=== PATIENT | female | born 1960 | race Caucasian/White ===

== ENCOUNTER 2018-07-01 15:43 | Emergency (ER) | payer BC, OTHER ==
[2018-07-01] MEDS ORDERED: ONDANSETRON 4 MG/2 ML VIAL ONE ×2 (16:33→19:51)
[2018-07-01] MEDS ORDERED: MORPHINE 4 MG/ML SYR ONE ×2 (16:33→19:52)
[2018-07-01 16:35] LABS: Absolute Monocytes 0.6 K/uL (0.1-1.3); Absolute Neutrophil 7.1 K/uL (1.8-8.0); Basophils % 0.7 % (0-1.3); Eosinophils % 1.9 % (0-4.4); Lymphocytes % 19.9 % (15.3-44.8); MCH 29.6 pg (27.0-35.0); MCV 86.5 fL (80-100); MPV 10.6 fL (7.6-11.3); Monocytes % 5.8 % (3.3-12.3); RBC Red Blood Cell Count 4.51 M/uL (3.86-4.86)
[2018-07-01 16:36] LABS: Protime INR 1.03
[2018-07-01 17:09] LABS: ALT/SGPT 64 U/L (12-78); AST/SGOT 51 U/L (15-37); Albumin 3.5 g/dL (3.4-5.0); Alkaline Phosphatase 110 U/L (45-117); BUN Blood Urea Nitrogen 15 mg/dL (7-18); Bicarbonate 29 mmol/L (21-32); Bilirubin Direct 0.2 mg/dL (0-0.2); Bilirubin Total 0.5 mg/dL (0.2-1.0); Glucose Level 101 mg/dL (74-106); Lipase 155 U/L (73-393); Magnesium 1.8 mg/dL (1.8-2.4); NT PRO-BNP 143 pg/mL (<125); Potassium 3.7 mmol/L (3.5-5.1); Sodium Level 142 mmol/L (136-145); Troponin (Emerg Dept Use Only) < 0.02 ng/mL (0.0-0.045)
--- NOTE | 2018-07-01 17:48 | RAD REPORT ---
EXAM DESCRIPTION: CT - Abdomen Pelvis W Contrast - 07/01/2018 5:25 pm CLINICAL HISTORY: Left-sided abdominal pain COMPARISON: None. TECHNIQUE: Biphasic, helical CT imaging of the abdomen and pelvis was performed following 100 ml non -ionic IV contrast. No oral contrast administered. All CT scans are performed using dose optimization technique as appropriate and may include automated exposure control or mA/KV adjustment according to patient size. FINDINGS: No suspicious findings in the lung bases. Liver shows fatty infiltration with no focal liver lesion identifiable. Spleen and pancreas show no s uspicious findings. Cholecystectomy clips are present with no biliary tree dilatation. Symmetric renal function is seen with no hydronephrosis or suspicious renal mass. No pyelonephritis o r acute renal parenchymal process. Parapelvic cysts are present. Mostly contracted urinary bladder sh ows no suspicious finding. Uterus is absent. No ovarian abnormality. Multiple phleboliths are present . No gastric dilatation or wall thickening. A small to moderate size hiatal hernia is present. No dilat ed small bowel loop or focal small bowel abnormality. Mild to moderate diverticulosis seen in the tor tuous sigmoid colon. No acute diverticulitis confirmed. Mild mucosal level inflammatory stranding can be present an occult on CT imaging. Diverticulosis continues in the descending colon. Colon mass is not confirmed. No free air, free fluid or inflammatory stranding. No hernia, mass or bulky lymphadenopathy. No ad renal abnormality. No suspicious bony findings. IMPRESSION: Left-sided colonic diverticulosis without mass or diverticulitis confirmed. Mild mucosal level inflammatory changes can be occult on CT imaging. No free air, obstruction or surgically emergent finding. Fatty infiltration of the liver.
--- NOTE | 2018-07-01 17:48 | RAD REPORT ---
EXAM DESCRIPTION: Nacho Single View07/01/2018 4:49 pm CLINICAL HISTORY: Chest pain COMPARISON: December 2016 FINDINGS: The lungs appear clear of acute infiltrate. The heart is normal size IMPRESSION: No acute abnormalities displayed
[2018-07-01 18:48] LABS: Urine Blood 1+ (NEG); Urine Glucose NEGATIVE (NEG); Urine Protein NEGATIVE (NEG); Urine Specific Gravity <1.005 (1.005-1.030)
--- NOTE | 2018-07-01 19:42 | ER ---
Nurse's Notes [facility] Name: Michelle Ibarra Age: 57 yrs Sex: Female : 1960 Arrival Date: 07/01/2018 Time: 15:46 Bed 18 Private MD: Roverto Christianson S Diagnosis: Unspecified abdominal pain Presentation: 07/01 15:52 Presenting complaint: Patient states: decreased urination, lower abd pain, diarrhea, sv right flank pain. Transition of care: patient was not received from another setting of care. Onset of symptoms was June 28, 2018. Care prior to arrival: None. 15:52 Method Of Arrival: Ambulatory sv 15:52 Acuity: ARNULFO 3 sv 16:00 Risk Assessment: Do you want to hurt yourself or someone else? Patient reports no rb1 desire to harm self or others. Initial Sepsis Screen: Does the patient meet any 2 criteria? No. Patient's initial sepsis screen is negative. Does the patient have a suspected source of infection? No. Patient's initial sepsis screen is negative. Historical: - Allergies: 15:53 No Known Allergies; sv - Home Meds: 16:00 Aspir-81 81 mg Oral TbEC 1 tab once daily [Active]; carvedilol 25 mg Oral tab 1 tab rb1 every 12 hours [Active]; Crestor 40 mg Oral tab 1 tab once daily [Active]; furosemide 40 mg Oral tab 1 tab once daily [Active]; lisinopril 10 mg Oral tab 1 tab once daily [Active]; Spironolactone 12.5 Oral 1 tab 2 times per day [Active]; - PMHx: 15:53 Hyperlipidemia; Hypertension; Myocardial infarction; CHF; sv - PSHx: 15:53 Knee surgery; Rotator cuff surgery; Cholecystectomy; sv - Immunization history:: Flu vaccine is not up to date. - Social history:: Smoking status: Patient/guardian denies using tobacco. - Ebola Screening: : No symptoms or risks identified at this time. Screenin:00 Abuse screen: Denies threats or abuse. Nutritional screening: No deficits noted. rb1 Tuberculosis screening: No symptoms or risk factors identified. Fall Risk None identified. Assessment: 16:00 General: Appears in no apparent distress. comfortable, Behavior is calm, cooperative, rb1 Denies fever. Pain: Complains of pain in suprapubic area, right lower quadrant and left lower quadrant Pain radiates to right lower back Pain currently is 10 out of 10 on a pain scale. Neuro: Level of Consciousness is awake, alert, obeys commands, Oriented to person, place, time, situation. Cardiovascular: Capillary refill < 3 seconds is brisk in bilateral fingers. Respiratory: Airway is patent Respiratory effort is even, unlabored, Respiratory pattern is regular, symmetrical. GI: Bowel sounds present X 4 quads. Abd is soft Reports cramping, diarrhea. : No signs and/or symptoms were reported regarding the genitourinary system. Derm: Skin is dry, Skin is normal, Skin temperature is warm. 17:00 Reassessment: Patient appears in no apparent distress at this time. Patient and/or rb1 family updated on plan of care and expected duration. Pain level reassessed. Patient is alert, oriented x 3, equal unlabored respirations, skin warm/dry/pink. 18:00 Reassessment: Patient appears in no apparent distress at this time. No changes from rb1 previously documented assessment. 18:10 Reassessment: Pt. ambulated to the restroom without difficulty. rb1 Vital Signs: 15:53 BP 142 / 74; Pulse 109; Resp 18; Temp 98.1; Pulse Ox 97% ; Weight 90.72 kg; Height 5 sv ft. 3 in. (160.02 cm); Pain 0/10; 16:30 BP 128 / 68; Pulse 90; Resp 20; Pulse Ox 97% on R/A; rb1 17:30 BP 139 / 67; Pulse 91; Resp 18; Pulse Ox 97% on R/A; rb1 18:15 BP 133 / 77; Pulse 85; Resp 17; Pulse Ox 95% on R/A; rb1 15:53 Body Mass Index 35.43 (90.72 kg, 160.02 cm) sv ED Course: 15:46 Patient arrived in ED. as 15:47 Roverto Christianson MD is Private Physician. as 15:52 Triage completed. sv 15:53 Arm band placed on. sv 15:54 Bipin Head [facility] 15:54 Sylvester Daley MD is Attending Physician. [facility] 16:00 Patient has correct armband on for positive identification. Placed in gown. Bed in low rb1 position. Call light in reach. Side rails up X 1. financial services director on. Pulse ox on. NIBP on. 16:11 Iris Blas, RN is Primary Nurse. rb1 16:15 Inserted saline lock: 22 gauge in right antecubital area, using aseptic technique. rb1 Blood collected. 16:29 Radiology exam delayed due to lab results not completed at this time. (BUN/Creatinine). tx 16:49 XRAY Chest (1 view) In Process Unspecified. EDMS 16:53 EKG done, by cogeneration technician. reviewed by Bipin AUGUST. 3 17:26 CT Abd/Pelvis - W/Contrast In Process Unspecified. EDMS 19:00 Report given to KAROLYN Teran. rb1 19:40 Roverto Christianson MD is Referral Physician. [facility] 19:57 No provider procedures requiring assistance completed. IV discontinued, intact, ak1 bleeding controlled, No redness/swelling at site. Pressure dressing applied. Administered Medications: 16:30 Drug: morphine 4 mg Route: IVP; Site: right antecubital; rb1 16:45 Follow up: Response: No adverse reaction; Pain is decreased rb1 16:30 Drug: Zofran 4 mg Route: IVP; Site: right antecubital; rb1 16:45 Follow up: Response: No adverse reaction rb1 19:52 Drug: morphine 4 mg Route: IVP; Site: right antecubital; ak1 19:58 Follow up: Response: No adverse reaction ak1 19:52 Drug: Zofran 4 mg Route: IVP; Site: right antecubital; ak1 19:58 Follow up: Response: No adverse reaction ak1 Outcome: 19:41 Discharge ordered by MD. [facility] 19:57 Discharged to home ambulatory, with family. ak1 19:57 Condition: good 19:57 Discharge instructions given to patient, Instructed on discharge instructions, follow up and referral plans. no drinking with medication, no driving heavy equipment, medication usage, Demonstrated understanding of instructions, follow-up care, medications, Prescriptions given X 1. 20:03 Patient left the ED. ak1 Signatures: Dispatcher [employer] EDMS Rosy Teague RN RN sv Mickail, Joel, PA PA jmm Martinez, Amelia as Krenek, Amber, RN RN ak1 Iris Blas, RN RN rb1 Terrence, Jeyson nj Olvera, Sirisha sm3
--- NOTE | 2018-07-01 19:42 | EDPHYS ---
Physician Documentation [facility] Name: Michelle Ibarra Age: 57 yrs Sex: Female : 1960 Arrival Date: 07/01/2018 Time: 15:46 Bed 18 Private MD: Roverto Christianson S ED Physician Sylvester Daley HPI: 07/01 16:11 This 57 yrs old Female presents to ER via Ambulatory with complaints of jmm Abdominal Pain, Back Pain, Diarrhea. 16:11 The patient presents with abdominal pain. Onset: The symptoms/episode began/occurred jmm gradually. The symptoms radiate to the right flank. Associated signs and symptoms: Pertinent positives: diarrhea. The symptoms are described as achy. This is a 57 year old female with a history of HLP, HTN, [place], CHF, that presents to the ED with right flank and right lower abdominal pain. Patient denies vomiting, admits to diarrhea. Patient is concerned she may have food poisoning. . Historical: - Allergies: 15:53 No Known Allergies; sv - Home Meds: 16:00 Aspir-81 81 mg Oral TbEC 1 tab once daily [Active]; carvedilol 25 mg Oral tab 1 tab rb1 every 12 hours [Active]; Crestor 40 mg Oral tab 1 tab once daily [Active]; furosemide 40 mg Oral tab 1 tab once daily [Active]; lisinopril 10 mg Oral tab 1 tab once daily [Active]; Spironolactone 12.5 Oral 1 tab 2 times per day [Active]; - PMHx: 15:53 Hyperlipidemia; Hypertension; Myocardial infarction; CHF; sv - PSHx: 15:53 Knee surgery; Rotator cuff surgery; Cholecystectomy; sv - Immunization history:: Flu vaccine is not up to date. - Social history:: Smoking status: Patient/guardian denies using tobacco. - Ebola Screening: : No symptoms or risks identified at this time. ROS: 16:11 Constitutional: Negative for fever, chills, and weight loss, Cardiovascular: Negative jmm for chest pain, palpitations, and edema, Respiratory: Negative for shortness of breath, cough, wheezing, and pleuritic chest pain. 16:11 Abdomen/GI: Positive for abdominal pain, diarrhea. jmm 16:11 All other systems are negative. Exam: 16:11 Head/Face: atraumatic. Chest/axilla: Normal chest wall appearance and motion. [facility] Cardiovascular: Regular rate and rhythm. No edema appreciated Respiratory: Normal respirations, no respiratory distress appreciated 16:11 Constitutional: The patient appears in no acute distress, alert, awake. 16:11 Abdomen/GI: Inspection: abdomen appears normal, Bowel sounds: normal, Palpation: soft, mild abdominal tenderness, in the right lower quadrant. 16:11 Back: ROM is normal. 16:11 Musculoskeletal/extremity: ROM: intact in all extremities. 16:11 Skin: Appearance: Color: normal in color. 16:11 Neuro: Orientation: is normal, Mentation: is normal, Memory: is normal, Gait: is steady. 16:11 Psych: Behavior/mood is pleasant, cooperative. Vital Signs: 15:53 BP 142 / 74; Pulse 109; Resp 18; Temp 98.1; Pulse Ox 97% ; Weight 90.72 kg; Height 5 sv ft. 3 in. (160.02 cm); Pain 0/10; 16:30 BP 128 / 68; Pulse 90; Resp 20; Pulse Ox 97% on R/A; rb1 17:30 BP 139 / 67; Pulse 91; Resp 18; Pulse Ox 97% on R/A; rb1 18:15 BP 133 / 77; Pulse 85; Resp 17; Pulse Ox 95% on R/A; rb1 15:53 Body Mass Index 35.43 (90.72 kg, 160.02 cm) sv MDM: 16:11 Patient medically screened. [facility] 19:32 Data reviewed: vital signs, nurses notes. [facility] 19:40 Counseling: I had a detailed discussion with the patient and/or guardian regarding: the [facility] historical points, exam findings, and any diagnostic results supporting the discharge/admit diagnosis, the need for outpatient follow up, to return to the emergency department if symptoms worsen or persist or if there are any questions or concerns that arise at home. 19:52 Data reviewed: lab test result(s), radiologic studies, CT scan. ED course: CT did not [facility] reveal signs of acute appendicitis. CBC normal. Patient given early appendicitis return precautions. I discussed with the patient the need for GI follow up and close follow up for abdominal reexamination. Patient was advised to otherwise return to the ED for reexamination. Patient understood and agrees with the plan of care. . 07/01 16:05 Order name: Basic Metabolic Panel; Complete Time: 17:10 [facility] 07/01 16:05 Order name: CBC with Diff; Complete Time: 16:56 [facility] 07/01 16:05 Order name: LFT's; Complete Time: 17:10 [facility] 07/01 16:05 Order name: Magnesium; Complete Time: 17:10 [facility] 07/01 16:05 Order name: NT PRO-BNP; Complete Time: 17:10 [facility] 07/01 16:05 Order name: PT-INR; Complete Time: 16:56 [facility] 07/01 16:05 Order name: Troponin (emerg Dept Use Only); Complete Time: 17:10 [facility] 07/01 16:05 Order name: XRAY Chest (1 view); Complete Time: 17:51 [facility] 07/01 16:05 Order name: Lipase; Complete Time: 17:10 [facility] 07/01 16:12 Order name: CT Abd/Pelvis - W/Contrast; Complete Time: 19:20 [facility] 07/01 18:22 Order name: Urine Dipstick--Ancillary (enter results); Complete Time: 18:52 em1 07/01 16:05 Order name: EKG; Complete Time: 16:06 [facility] 07/01 16:05 Order name: Cardiac monitoring; Complete Time: 16:48 [facility] 07/01 16:05 Order name: EKG - Nurse/Tech; Complete Time: 16:48 [facility] 07/01 16:05 Order name: IV Saline Lock; Complete Time: 16:35 [facility] 07/01 16:05 Order name: Labs collected and sent; Complete Time: 16:35 [facility] 07/01 16:05 Order name: O2 Per Protocol; Complete Time: 16:35 [facility] 07/01 16:05 Order name: O2 Sat Monitoring; Complete Time: 16:35 [facility] 07/01 18:22 Order name: Urine Dipstick-Ancillary (obtain specimen); Complete Time: 18:22 em1 Administered Medications: 16:30 Drug: morphine 4 mg Route: IVP; Site: right antecubital; rb1 16:45 Follow up: Response: No adverse reaction; Pain is decreased rb1 16:30 Drug: Zofran 4 mg Route: IVP; Site: right antecubital; rb1 16:45 Follow up: Response: No adverse reaction rb1 19:52 Drug: morphine 4 mg Route: IVP; Site: right antecubital; ak1 19:58 Follow up: Response: No adverse reaction ak1 19:52 Drug: Zofran 4 mg Route: IVP; Site: right antecubital; ak1 19:58 Follow up: Response: No adverse reaction ak1 Disposition: 07/01/18 19:41 Discharged to Home. Impression: Unspecified abdominal pain. - Condition is Stable. - Discharge Instructions: Abdominal Pain, Adult. - Prescriptions for Tylenol- Codeine #3 300-30 mg Oral Tablet - take 1 tablet by ORAL route every 6 hours As needed; 15 tablet. - Medication Reconciliation Form, Thank You Letter, Antibiotic Education, Prescription Opioid Use form. - Follow up: Roverto Christianson MD; When: Tomorrow; Reason: Recheck today's complaints, Continuance of care, Re-evaluation by your physician. - Notes: Please follow up with your primary care provider tomorrow for reevaluation. Please return to the ED if you develop increased pain, vomiting, fever, or any other concerning symptoms. Addendum: 07/03/2018 13:33 Co-signature as Attending Physician, Sylvester Daley MD I agree with the assessment and k dr plan of care. Signatures: Dispatcher [employer] EDMS Rosy Teague RN RN Sylvester Gil MD MD kdr Mickail, Joel, PA PA jmm Martinez, Eric em1 Parul Rogers RN RN ak1 Iris Blas RN RN rb1 Corrections: (The following items were deleted from the chart) 07/01 20:03 19:41 07/01/2018 19:41 Discharged to Home. Impression: Unspecified abdominal pain. ak1 Condition is Stable. Forms are Medication Reconciliation Form, Thank You Letter, Antibiotic Education, Prescription Opioid Use. Follow up: Roverto Christianson; When: Tomorrow; Reason: Recheck today's complaints, Continuance of care, Re-evaluation by your physician. jenifer
[2018-07-01 20:24] VITALS: TEMP 98.1
[2018-07-01 20:27] VITALS: BP 133/77; O2SAT 95
--- NOTE | 2018-07-02 08:15 | EKG ---
Test Date: 2018-07-01 Test Time: 16:39:03 Esol Teacher: JOEY MEASUREMENT RESULTS: Intervals: Rate: 102 UT: 156 QRSD: 100 QT: 352 QTc: 458 [place]: P: 40 UT: 156 QRS: -6 T: 126 INTERPRETIVE STATEMENTS: Sinus tachycardia Voltage criteria for left ventricular hypertrophy Anterolateral infarct, age undetermined Abnormal ECG Compared to ECG 01/10/2017 09:01:37 Myocardial infarct finding now present Sinus rhythm no longer present Atrial premature complex(es) no longer present Electronically Signed On 07-02-18 08:14:54 CDT by Chetan Upton
== END 2018-07-01 20:03 | disposition home or self-care (01) ==
LOC: ER 15:43
DX: R10.30 Lower abdominal pain, unspecified (principal); I10 Essential (primary) hypertension; E78.5 Hyperlipidemia, unspecified; I25.2 Old myocardial infarction; I50.9 Heart failure, unspecified; Z79.82 Long term (current) use of aspirin
CPT/HCPCS: 36415; 71045; 74177; 80048; 80076; 81003; 83690; 83735; 83880; 84484; 85025; 85610; 93005; 96374; 96375; 99285; J2405; Q9967

== ENCOUNTER 2019-03-04 15:14 | Observation (INO) | payer BC ==
[2019-03-04 16:02] LABS: Absolute Lymphocytes (CBC) 1.8 K/uL (0.7-4.9); Eosinophils % 2.8 % (0-4.4); Hematocrit 38.7 % (36.0-45.0); MPV 10.3 fL (7.6-11.3); Monocytes % 6.2 % (3.3-12.3); RBC Red Blood Cell Count 4.59 M/uL (3.86-4.86)
[2019-03-04 16:08] LABS: Protime INR 0.96
[2019-03-04 16:21] LABS: ALT/SGPT 39 U/L (12-78); AST/SGOT 29 U/L (15-37); Albumin 3.4 g/dL (3.4-5.0); Alkaline Phosphatase 107 U/L (45-117); BUN Blood Urea Nitrogen 17 mg/dL (7-18); Bicarbonate 26 mmol/L (21-32); Bilirubin Direct < 0.1 mg/dL (0-0.2); Bilirubin Total 0.3 mg/dL (0.2-1.0); Glucose Level 111 mg/dL (74-106); Magnesium 2.1 mg/dL (1.8-2.4); NT PRO-BNP 133 pg/mL (<125); Potassium 4.3 mmol/L (3.5-5.1); Protein, Total 7.3 g/dL (6.4-8.2); Sodium Level 142 mmol/L (136-145); Troponin (Emerg Dept Use Only) < 0.02 ng/mL (0.0-0.045)
--- NOTE | 2019-03-04 16:54 | RAD REPORT ---
EXAM DESCRIPTION: Nacho Single View03/04/2019 3:48 pm CLINICAL HISTORY: Chest pain COMPARISON: June 2018 FINDINGS: The lungs appear clear of acute infiltrate. The heart is normal size IMPRESSION: No acute abnormalities displayed
--- OUTSIDE RECORDS SUMMARY | 2019-03-04 17:08 | XMS REPORT ---
:1960 [facility] Address [address] [place] [address] Dr. Lindsey [address] [place] [id number] Care Team Providers Name Role Phone Unavailable Unavailable Unavailable Problems This patient has no known problems. Allergies, Adverse Reactions, Alerts This patient has no known allergies or adverse reactions. Medications This patient has no known medications.
--- NOTE | 2019-03-04 17:30 | EDPHYS ---
Physician Documentation [facility] Name: Michelle Ibarra Age: 58 yrs Sex: Female : 1960 Arrival Date: 03/04/2019 Time: 15:17 Bed 6 Private MD: ED Physician Sylvester Daley HPI: 03/04 15:31 This 58 yrs old Female presents to ER via EMS with complaints of Chest Pain > snw 28 y/o. 15:31 The patient or guardian reports chest pain that is located primarily in the substernal snw area. Onset: suddenly, this morning. The pain radiates to the right arm. Associated signs and symptoms: Pertinent positives: nausea. The chest pain is described as a heaviness, a pressure. Duration: The patient or guardian reports a single episode, that is now resolved. Severity of pain: At its worst the pain was moderate. EMS care prior to arrival includes: additional ASA, NTG. The patient has experienced similar episodes in the past, with the last episode occurring 2 year(s) ago. Historical: - Allergies: 15:24 No Known Drug Allergies; ph - Home Meds: 19:15 Aspir-81 81 mg Oral TbEC 1 tab once daily [Active]; carvedilol 25 mg Oral tab 1 tab ph every 12 hours [Active]; Crestor 40 mg Oral tab 1 tab once daily [Active]; furosemide 40 mg Oral tab 1 tab once daily [Active]; lisinopril 10 mg Oral tab 1 tab once daily [Active]; Spironolactone 12.5 Oral 1 tab 2 times per day [Active]; - PMHx: 15:24 CHF; Hyperlipidemia; Hypertension; Myocardial infarction; ph - PSHx: 15:24 Knee surgery; Rotator cuff surgery; Cholecystectomy; Hysterectomy-partial; ph - Immunization history:: Adult Immunizations unknown. - Social history:: Smoking status: Patient/guardian denies using tobacco. - Ebola Screening: : No symptoms or risks identified at this time. ROS: 15:32 Constitutional: Negative for fever, chills, and weight loss, Eyes: Negative for injury, snw pain, redness, and discharge, ENT: Negative for injury, pain, and discharge, Neck: Negative for injury, pain, and swelling, Respiratory: Negative for shortness of breath, cough, wheezing, and pleuritic chest pain, Abdomen/GI: Negative for abdominal pain, vomiting, diarrhea, and constipation, Positive nausea Back: Negative for injury and pain. 15:32 Skin: Negative for injury, rash, and discoloration, Neuro: Negative for headache, weakness, numbness, tingling, and seizure, Psych: Negative for depression, anxiety, suicide ideation, homicidal ideation, and hallucinations. 15:32 Cardiovascular: Positive for chest pain, of the chest. 15:32 MS/extremity: Positive for right arm sharp pain/heavy sensation. Exam: 15:34 Constitutional: This is a well developed, well nourished patient who is awake, alert, snw and in no acute distress. Head/Face: Normocephalic, atraumatic. Eyes: Pupils equal round and reactive to light, extra-ocular motions intact. Lids and lashes normal. Conjunctiva and sclera are non-icteric and not injected. Cornea within normal limits. Periorbital areas with no swelling, redness, or edema. ENT: Nares patent. No nasal discharge, no septal abnormalities noted. Tympanic membranes are normal and external auditory canals are clear. Oropharynx with no redness, swelling, or masses, exudates, or evidence of obstruction, uvula midline. Mucous membranes moist. Neck: Trachea midline, no thyromegaly or masses palpated, and no cervical lymphadenopathy. Supple, full range of motion without nuchal rigidity, or vertebral point tenderness. No Meningismus. Chest/axilla: Normal chest wall appearance and motion. Nontender with no deformity. No lesions are appreciated. Cardiovascular: Regular rate and rhythm with a normal S1 and S2. No gallops, murmurs, or rubs. Normal PMI, no JVD. No pulse deficits. Respiratory: Lungs have equal breath sounds bilaterally, clear to auscultation and percussion. No rales, rhonchi or wheezes noted. No increased work of breathing, no retractions or nasal flaring. Abdomen/GI: Soft, non-tender, with normal bowel sounds. No distension or tympany. No guarding or rebound. No evidence of tenderness throughout. Back: No spinal tenderness. No costovertebral tenderness. Full range of motion. Skin: Warm, dry with normal turgor. Normal color with no rashes, no lesions, and no evidence of cellulitis. MS/ Extremity: Pulses equal, no cyanosis. Neurovascular intact. Full, normal range of motion. Neuro: Awake and alert, GCS 15, oriented to person, place, time, and situation. Cranial nerves II-XII grossly intact. Motor strength 5/5 in all extremities. Sensory grossly intact. Cerebellar exam normal. Normal gait. 15:34 ECG was reviewed by the Attending Physician. Vital Signs: 15:22 BP 152 / 76; Pulse 68; Resp 18; Temp 98.1; Pulse Ox 96% on R/A; Weight 87.54 kg; Height ph 5 ft. 3 in. (160.02 cm); Pain 2/10; 16:15 BP 123 / 63; Pulse 74; Resp 18; Pulse Ox 99% on R/A; ph 17:30 BP 118 / 68; Pulse 68; Resp 18; Pulse Ox 98% on R/A; ph 18:30 BP 99 / 53; Pulse 65; Resp 18; Pulse Ox 99% on R/A; ph 19:48 BP 114 / 58; Pulse 62; Resp 16; Temp 98.2; Pulse Ox 99% on R/A; ak1 20:35 BP 121 / 60; Pulse 65; Resp 17; Temp 98.1; Pulse Ox 100% ; Pain 0/10; rr5 15:22 Body Mass Index 34.19 (87.54 kg, 160.02 cm) ph MDM: 15:30 Data reviewed: vital signs, nurses notes. Data interpreted: Pulse oximetry: on room air snw is 96 %. Interpretation: acceptable. 15:38 HEART Score: History: Moderately Suspicious (1), ECG: Non specific repolarization snw disturbance / LBTB / PM (1), Age: > 45 and < 65 years (1), Risk Factors: > or = 3 Risk factors for atherosclerotic disease (2), [Hypercholesterolemia] [Hypertension] [Obesity]. The patient was given aspirin in the Emergency Department. 15:40 Patient medically screened. snw 17:26 Counseling: I had a detailed discussion with the patient and/or guardian regarding: the snw historical points, exam findings, and any diagnostic results supporting the discharge/admit diagnosis, lab results, radiology results, the need for further work-up and treatment in the hospital. Physician consultation: Tommy El MD was called at 17:15, was contacted at 17:15, regarding admission, to the telemetry unit. 03/04 15:27 Order name: Basic Metabolic Panel ph 03/04 15:27 Order name: CBC with Diff; Complete Time: 16:11 ph 03/04 15:27 Order name: LFT's; Complete Time: 16:22 ph 03/04 15:27 Order name: Magnesium; Complete Time: 16:22 ph 03/04 15:27 Order name: NT PRO-BNP; Complete Time: 16:22 ph 03/04 15:27 Order name: PT-INR; Complete Time: 16:12 ph 03/04 15:27 Order name: Troponin (emerg Dept Use Only); Complete Time: 16:22 ph 03/04 15:27 Order name: Basic Metabolic Panel [facility] 03/04 15:27 Order name: CBC with Diff snw 03/04 15:27 Order name: LFT's snw 03/04 15:27 Order name: Magnesium [facility] 03/04 15:27 Order name: XRAY Chest (1 view); Complete Time: 17:04 ph 03/04 15:27 Order name: Cardiac monitoring; Complete Time: 16:39 ph 03/04 15:27 Order name: EKG - Nurse/Tech; Complete Time: 15:28 ph 03/04 15:27 Order name: IV Saline Lock; Complete Time: 15:28 ph 03/04 15:27 Order name: Labs collected and sent; Complete Time: 15:37 ph 03/04 15:27 Order name: O2 Per Protocol; Complete Time: 15:37 ph 03/04 15:27 Order name: O2 Sat Monitoring; Complete Time: 15:37 ph 03/04 15:27 Order name: EKG; Complete Time: 15:30 snw 03/04 15:28 Order name: Basic Metabolic Panel; Complete Time: 16:22 EDMS 03/04 18:00 Order name: Troponin I ED[facility] 03/04 18:01 Order name: CONS Physician Consult ED[facility] 03/04 18:01 Order name: Heart Healthy ED[facility] 03/04 15:27 Order name: Cardiac monitoring; Complete Time: 16:39 snw 03/04 15:27 Order name: EKG - Nurse/Tech; Complete Time: 16:39 snw 03/04 15:27 Order name: IV Saline Lock; Complete Time: 16:39 snw 03/04 15:27 Order name: Labs collected and sent; Complete Time: 19:11 snw 03/04 15:27 Order name: O2 Per Protocol; Complete Time: 19:11 snw 03/04 15:27 Order name: O2 Sat Monitoring; Complete Time: 19:11 snw EC:34 Rate is 69 beats/min. Rhythm is regular. QRS [place] is Normal. CA interval is prolonged. snw QRS interval is normal. QT interval is normal. No ST changes noted. Clinical impression: NSR w/ Non-specific ST/T Changes. Administered Medications: No medications were administered Disposition: 03/04/19 17:29 Hospitalization ordered by Tommy El for Observation. Preliminary diagnosis is Chest pain, unspecified. - Bed requested for Telemetry/MedSurg (observation). - Status is Observation. rr5 - Condition is Stable. - Problem is an acute exacerbation. - Symptoms are resolved. UTI on Admission? No Addendum: 03/07/2019 11:54 Co-signature as Attending Physician, Sylvester Daley MD I agree with the assessment and k dr plan of care. Signatures: Dispatcher [employer] [facility] Sylvester Daley MD MD [facility] Sherrill Capone, [employer] WORKER-C [employer] WORKER-CsnRosemarie Thomas ms, Patricia, RN RN Edgar Herman, KAROLYN RN rr5 Corrections: (The following items were deleted from the chart) 03/04 15:30 15:29 Basic Metabolic Panel ordered. [facility] EDWV 15:30 15:29 CBC with Automated Diff ordered. [facility] ED[facility] 15:30 15:30 PROBNP+C.LAB.BRZ ordered. [facility] ED[facility] 15:31 15:30 PROTIME (+INR)+COAG.LAB.BRZ ordered. ED[facility] ED[facility] 15:31 15:30 TROPONIN (EMERG DEPT USE ONLY)+C.LAB.BRZ ordered. [facility] ED[facility] 15:33 15:30 Chest Single View+RAD.RAD.BRZ ordered. [facility] ED[facility] 18:10 17:29 Hospitalization Ordered by Tommy El MD for Observation. Preliminary diagnosis ms is Chest pain, unspecified. Bed requested for Telemetry/MedSurg (observation). Status is Observation. Condition is Stable. Problem is an acute exacerbation. Symptoms are resolved. UTI on Admission? No. snw 20:39 18:10 03/04/2019 17:29 Hospitalization Ordered by Tommy El MD for Observation. rr5 Preliminary diagnosis is Chest pain, unspecified. Bed requested for Telemetry/MedSurg (observation). Status is Observation. Condition is Stable. Problem is an acute exacerbation. Symptoms are resolved. UTI on Admission? No. ms
--- NOTE | 2019-03-04 17:30 | ER ---
Nurse's Notes [facility] Name: Michelle Ibarra Age: 58 yrs Sex: Female : 1960 Arrival Date: 03/04/2019 Time: 15:17 Bed 6 Private MD: Diagnosis: Chest pain, unspecified Presentation: 03/04 15:18 Presenting complaint: Patient states: L sided chest pressure that began today, states, ph " I had just gotten home w/ my granddaughter and I started having a lot of pressure in my chest and pain in my R arm." Pt also reports SOB and nausea, self-administered 81 mg ASA, EMS administered 3 additional ASA and nitro x 1, pt reports hx of WI x 3. Transition of care: patient was not received from another setting of care. Onset of symptoms was March 04, 2019. Risk Assessment: Do you want to hurt yourself or someone else? Patient reports no desire to harm self or others. Initial Sepsis Screen: Does the patient meet any 2 criteria? Yes Does the patient have a suspected source of infection? No. Patient's initial sepsis screen is negative. Care prior to arrival: Medication(s) given: ASA, 81 mg, x 4, Nitroglycerin, 0.4 mg SL x 1, IV initiated. 20 GA, in the left in the right antecubital area. 15:18 Method Of Arrival: EMS: [facility] 15:18 Acuity: ARNULFO 3 ph Historical: - Allergies: 15:24 No Known Drug Allergies; ph - Home Meds: 19:15 Aspir-81 81 mg Oral TbEC 1 tab once daily [Active]; carvedilol 25 mg Oral tab 1 tab ph every 12 hours [Active]; Crestor 40 mg Oral tab 1 tab once daily [Active]; furosemide 40 mg Oral tab 1 tab once daily [Active]; lisinopril 10 mg Oral tab 1 tab once daily [Active]; Spironolactone 12.5 Oral 1 tab 2 times per day [Active]; - PMHx: 15:24 CHF; Hyperlipidemia; Hypertension; Myocardial infarction; ph - PSHx: 15:24 Knee surgery; Rotator cuff surgery; Cholecystectomy; Hysterectomy-partial; ph - Immunization history:: Adult Immunizations unknown. - Social history:: Smoking status: Patient/guardian denies using tobacco. - Ebola Screening: : No symptoms or risks identified at this time. Screenin:24 Abuse screen: Denies threats or abuse. Denies injuries from another. Nutritional ph screening: No deficits noted. Tuberculosis screening: No symptoms or risk factors identified. Fall Risk None identified. Assessment: 15:30 General: Appears in no apparent distress. comfortable, well groomed, Behavior is calm, ph cooperative, appropriate for age, Denies fever, feeling ill. Pain: Complains of pain in anterior aspect of left upper chest Pain radiates to right arm Pain currently is 2 out of 10 on a pain scale. at worst was 10 out of 10 on a pain scale. Quality of pain is described as pressure, Pain began suddenly. Neuro: Level of Consciousness is awake, alert, obeys commands, Oriented to person, place, time, situation. Cardiovascular: Reports chest pain, nausea, shortness of breath, Capillary refill < 3 seconds in bilateral fingers Patient's skin is warm and dry. Chest pain quality is pressure, is located in left anterior chest wall radiates to right arm(s) began suddenly. Respiratory: Airway is patent Respiratory effort is even, unlabored, Respiratory pattern is regular, symmetrical. GI: Patient currently denies abdominal pain, diarrhea, vomiting. Derm: Skin is intact, is healthy with good turgor, Skin is pink, warm \\T\\ dry. Musculoskeletal: Circulation, motion, and sensation intact. Range of motion: intact in all extremities. 16:42 Reassessment: Patient appears in no apparent distress at this time. Patient and/or ph family updated on plan of care and expected duration. Pain level reassessed. Patient is alert, oriented x 3, equal unlabored respirations, skin warm/dry/pink. tresting quietly rates pain 4/10 at this time, states, " It comes and goes," currently denies nausea or SOB, VSS, awaiting lab results, family at bedside. 17:40 Reassessment: Patient appears in no apparent distress at this time. Patient and/or ch family updated on plan of care and expected duration. Pain level reassessed. Patient is alert, oriented x 3, equal unlabored respirations, skin warm/dry/pink. Patient states feeling better. 18:21 Reassessment: Patient appears in no apparent distress at this time. floor states they ch cannot take patients until after shift change. pt notified of wait at least 1.25 hours till admission. pt states she feels better, no s/s of distress. 19:15 General: Appears in no apparent distress. comfortable, Behavior is calm, cooperative, rr5 appropriate for age. Pain: Denies pain. Neuro: Level of Consciousness is awake, alert, obeys commands, Oriented to person, place, time, situation, Appropriate for age. Cardiovascular: Reports chest pain, Capillary refill < 3 seconds Patient's skin is warm and dry. Respiratory: Airway is patent Respiratory effort is even, unlabored, Respiratory pattern is regular, symmetrical. GI: No signs and/or symptoms were reported involving the gastrointestinal system. : No signs and/or symptoms were reported regarding the genitourinary system. EENT: No signs and/or symptoms were reported regarding the EENT system. Derm: Skin is intact, Skin is pink, warm \\T\\ dry. Musculoskeletal: Circulation, motion, and sensation intact. Capillary refill < 3 seconds, Range of motion: intact in all extremities. 19:15 Reassessment: awaiting for room acceptance. rr5 20:00 Reassessment: Patient appears in no apparent distress at this time. Patient and/or rr5 family updated on plan of care and expected duration. Pain level reassessed. Patient is alert, oriented x 3, equal unlabored respirations, skin warm/dry/pink. 20:30 Reassessment: snacks given with good appetite. rr5 Vital Signs: 15:22 BP 152 / 76; Pulse 68; Resp 18; Temp 98.1; Pulse Ox 96% on R/A; Weight 87.54 kg; Height ph 5 ft. 3 in. (160.02 cm); Pain 2/10; 16:15 BP 123 / 63; Pulse 74; Resp 18; Pulse Ox 99% on R/A; ph 17:30 BP 118 / 68; Pulse 68; Resp 18; Pulse Ox 98% on R/A; ph 18:30 BP 99 / 53; Pulse 65; Resp 18; Pulse Ox 99% on R/A; ph 19:48 BP 114 / 58; Pulse 62; Resp 16; Temp 98.2; Pulse Ox 99% on R/A; ak1 20:35 BP 121 / 60; Pulse 65; Resp 17; Temp 98.1; Pulse Ox 100% ; Pain 0/10; rr5 15:22 Body Mass Index 34.19 (87.54 kg, 160.02 cm) ph ED Course: 15:17 Patient arrived in ED. ph 15:22 Triage completed. ph 15:24 Patient has correct armband on for positive identification. Placed in gown. Bed in low ph position. Call light in reach. Side rails up X2. wire weaver on. Pulse ox on. NIBP on. Door closed. Noise minimized. Warm blanket given. Head of bed elevated. 15:25 Yaneli Waterman, RN is Primary Nurse. ph 15:25 Arm band placed on Patient placed in an exam room, on a stretcher, on power press operator. ph 15:26 [facility] Cap[facility]C [facility] snw 15:26 Sylvester Daley MD is Attending Physician. snw 15:39 EKG done, by ED staff. sm3 15:40 Maintain EMS IV. Dressing intact. Good blood return noted. Site clean \\T\\ dry. Gauge \\T\\ ph site: 20 LAC. 15:48 XRAY Chest (1 view) In Process Unspecified. EDMS 16:44 Patient maintains SpO2 saturation greater than 95% on room air. ph 17:28 Tommy El MD is Hospitalizing Provider. snw 19:14 No provider procedures requiring assistance completed. Patient admitted, IV remains in ph place. Administered Medications: No medications were administered Outcome: 17:29 Decision to Hospitalize by Provider. snw 19:54 Condition: stable ak1 19:54 Instructed on the need for admit. 20:06 Admitted to Tele accompanied by tech, via wheelchair, room 219, with chart, Report ak1 called to Joao 20:39 Patient left the ED. rr5 Signatures: Dispatcher [employer] EDMS Marylin Maciel, RN KAROLYN Sherrill Capone FNP-C FNP-CsnParul Luong RN RN ak1 Yaneli Waterman, KAROLYN PARR Sirisha Olvera [facility] Edgar Herman RN RN rr5
[2019-03-04] MEDS ORDERED: NITROGLYCERIN 0.4 MG/TAB SL PRN (17:51)
[2019-03-04] MEDS ORDERED: MORPHINE 2 MG/ML SYR IV PRN (17:51)
[2019-03-04] MEDS ORDERED: ACETAMINOPHEN 500 MG TAB PO PRN (17:51)
[2019-03-04] MEDS: ENOXAPARIN 40 MG/0.4 ML SQ SCH (18:30)
[2019-03-04] MEDS ORDERED: ATORVASTATIN 40 MG TAB PO SCH (21:00)
[2019-03-04 21:53] VITALS: BMI 34.2
[2019-03-04] MEDS: METOPROLOL TAR 25 MG TAB PO SCH (23:00)
--- NOTE | 2019-03-05 03:13 | HP ---
Date of Admission: 03/04/2019 Chief Complaint: Chest pain. History Of Present Illness: The patient is a 58-year-old female with past medical history of coronar y artery disease status post NV, congestive heart failure, hypertension, obesity, comes in with chest pain that was sudden onset, radiating to the right arm, associated with palpitations, shortness of b reath, and nausea. The patient denies any vomiting. The patient states that these symptoms were sim ilar to her previous MIs. The patient took an aspirin and did not have any relief. In fact, the pat nicole has been having these episodes of pain, which had been relieved by aspirin recently. At this ti me, the episode lasted 45 minutes. The patient called EMS. She was given sublingual nitroglycerin w hich finally helped to alleviate her pain. She did report post nitroglycerin headache. In the ER, h er workup showed a negative troponin level. EKG did not show any acute changes. She was then referr ed for admission. Past Medical History: Congestive heart failure, hypertension, obesity, history of NV x3. Surgical History: Cholecystectomy, hysterectomy, knee surgery, rotator cuff surgery on the left. Allergies: NO KNOWN DRUG ALLERGIES. Medications: List reviewed. Social History: The patient drinks a beer or two every 6 months. No tobacco use. No illicit drug u se. The patient is , has 1 daughter. Family History: The patient is adopted, however she knows that her biological mother of an NV a t the age of 58. Review of Systems: Ten point system reviewed, negative except as per HPI. Physical Examination: Vital Signs: Blood pressure 152/76, pulse 68, respirations 18, temperature 98.1, O2 96% on room air. It should be noted that her blood pressure was systolic 200s at home prior to taking nitroglycerin. BMI is 34. General: Awake, alert, oriented x3, not in any acute distress. Obese female. HEENT: Normocephalic, atraumatic. PERRLA. EOMI. Moist mucous membranes. Oropharynx is clear. Po or dentition. Conjunctivae anicteric. Neck: Supple. No JVD. Trachea midline. CV: S1, S2. Regular rate and rhythm. Peripheral pulses present. Respiratory: Clear to auscultation bilaterally. No wheezing or stridor. No use of accessory muscle s Gastrointestinal: Abdomen is soft, nontender, nondistended. Positive bowel sounds. No guarding o r rigidity. Extremities: No clubbing, cyanosis, or edema. Neurologic: Nonfocal. Cranial nerves 2 through 12 intact grossly. Speech is normal. Sensation, in tact to light touch. Skin: No rashes. Normal skin turgor. Psych: Mood is okay. Affect is full. Insight and judgment are good. Laboratory Data: Sodium 142, potassium 4.3, chloride 109, CO2 26, BUN 17, creatinine 0.87, glucose 1 11, calcium 9.2, magnesium 2.1. Troponin less than 0.02. BNP 133. INR 0.96, WBC 8.6, H and H 12.6 and 38.7, platelets 235, neutrophils 69%. Chest x-ray shows no acute abnormalities, personally revie thu. Assessment And Plan: A 58-year-old female with: 1.Unstable angina. The patient has history of previous myocardial infarctions, does not have any co ronary stents. We will start her on chest pain guidelines, rule out acute coronary syndrome. Initia l workup is negative. We will consult Cardiology. Obtain echocardiogram. The patient may need a st ress test or cardiac catheterization. The patient's primary foreign food cook specialty is in [facility]. 2.Congestive heart failure, systolic dysfunction. We will monitor I's and O's, daily weights. We w ill place her on fluid restriction. Last known ejection fraction is 18%. 3.Essential hypertension. The patient had systolic in the 200s earlier today before taking nitrogly cerin. Blood pressure is now improved. We will resume home medications. 4.Obesity. Body mass index 34. 5.Deep vein thrombosis prophylaxis with Lovenox. Plan: Admit the patient to Med-Surg, place as observation. The patient has moderate risk for advers e effects. Her heart score is over 5. /AUBREEL Voice ID: [id number]
[2019-03-05 04:27] LABS: Absolute Lymphocytes (CBC) 2.4 K/uL (0.7-4.9); Basophils % 0.6 % (0-1.3); Eosinophils % 3.5 % (0-4.4); Hematocrit 35.7 % (36.0-45.0); Lymphocytes % 27.8 % (15.3-44.8); MPV 11.1 fL (7.6-11.3); Monocytes % 7.3 % (3.3-12.3); RBC Red Blood Cell Count 4.26 M/uL (3.86-4.86)
[2019-03-05 04:41] LABS: Potassium 3.7 mmol/L (3.5-5.1)
--- NOTE | 2019-03-05 08:09 | EKG ---
Test Date: 2019-03-04 Test Time: 15:18:48 Dry Cans Operator: SENG MEASUREMENT RESULTS: Intervals: Rate: 69 KS: 172 QRSD: 100 QT: 402 QTc: 430 [place]: P: 18 KS: 172 QRS: -15 T: 57 INTERPRETIVE STATEMENTS: Normal sinus rhythm Voltage criteria for left ventricular hypertrophy Nonspecific T wave abnormality Anterior infarct Abnormal ECG Compared to ECG 07/01/2018 16:39:03 T-wave abnormality now present Sinus tachycardia no longer present Electronically Signed On 03-05-19 08:09:10 CDT by Chetan Upton
[2019-03-05] MEDS: METOPROLOL TAR 25 MG TAB PO SCH (08:46)
[2019-03-05] MEDS: ENOXAPARIN 40 MG/0.4 ML SQ SCH (08:47)
[2019-03-05 08:49] VITALS: BP 115/53; O2SAT 92
[2019-03-05] MEDS ORDERED: ASPIRIN EC 81 MG TAB PO SCH (09:00)
[2019-03-05] MEDS ORDERED: LISINOPRIL 10 MG TAB PO SCH (09:00)
[2019-03-05] MEDS ORDERED: SPIRONOLACTONE 25 MG TABLET PO SCH (09:00)
--- NOTE | 2019-03-05 09:44 | CON ---
Chief Complaint: Chest pain. History Of Present Illness: The patient had chest pain yesterday, mostly atypical features and since being in the hospital, her EKG shows no changes from older EKGs. Her cardiac enzymes are all normal . Troponins are less than 0.02. Mrs. Ibarra has a history of congestive heart failure due to no nischemic cardiomyopathy. She has had cardiac cath at least twice perhaps more. She has never been any acute myocardial infarction, stenting, bypass surgery. A defibrillator was recommended to her by Dr. Yoo. She went as far as consulting with Dr. Sutton at [facility], but the patient refu sed to have a defibrillator put in. She did not want to have anything permanent done with the wires might stick to her heart. I counseled her that she should rethink that and reconsider having a defib rillator placed. She does not have shortness of breath. No symptoms that sound like angina. No his tory of syncope, presyncope. No orthopnea, pedal edema, very minimal dyspnea on exertion. Physical Examination: Vital Signs: She is 5 feet 3 inches, 193 pounds. General: Obese, alert, oriented, pleasant, not in distress. Lungs: Clear. Cardiac: Normal. Abdomen: Soft. Extremities: Normal distal pulses palpable. Laboratory Data: Total cholesterol 191, LDL 110. Troponins as mentioned are all less than 0.02. Impression: My impression is that the patient can be discharged, we do not need to keep her to do a stress test. She can return to Dr. Yoo, reconsider the idea of getting a defibrillator. I also put in her mind the possibility of changing from lisinopril, one of her outpatient medications to Entresto. She will discuss this with Dr. Yoo. JOSE DANIEL/HOWIE Voice ID: [id number] Report ID: [id number]
[2019-03-05 10:36] VITALS: TEMP 98.4
--- NOTE | 2019-03-05 15:00 | DS ---
Date of Discharge: 03/05/2019 Sterile Processing Technologist: Dr. Upton with Cardiology. Procedures: None. Discharge Diagnoses: 1.Unstable angina. Acute coronary syndrome ruled out. 2.Obesity, BMI 34.2. 3.Chronic systolic heart failure with last ejection fraction of 18%, stable, compensated. 4.Essential hypertension, stable. Hospital Course: The patient is a 58-year-old female who came into the hospital with chest pain. Th e patient has history of previous MIs, heart failure, hypertension, obesity. The patient was admitte d to rule out ACS. Her cardiac enzymes were negative. She was evaluated by Dr. Upton with Cardiolo gy, who did not recommend any stress testing. The patient was recommended to have defibrillator plac ed. She has been recommended for this in the past, however, has refused. She feels that the wires w ill stick to her heart, and in her mind the risks outweigh the benefits. She understands that she ca n have a clot formation in her heart due to her low ejection fraction, and she has a chance of sudden cardiac . She voiced understanding, wished to follow up with her primary gypsum block setter. The pa ev is a good candidate for Entresto. She will need to follow up with her primary gypsum block setter to be switched over. For now she was added on Aldactone. The patient also requested refills for her ni tro. She understands that being on Aldactone, which is a potassium-sparing diuretic, she will need t o discontinue her potassium supplementation. The patient was then cleared for discharge. Her sympto ms had resolved, likely atypical pain. Medications: As per medication reconciliation list. Followup: Follow up with primary care physician in 2 days. Follow up with primary gypsum block setter, Dr. Saba in 2 weeks. Return to ER for worsening condition. Diet: Heart healthy, low-sodium, fluid-restricted diet. Activity: As tolerated. Physical Examination: General: Awake, alert, oriented x3. No acute distress. CV: S1, S2. No murmurs. Respiratory: Moving air well bilaterally. Abdomen: Abdomen is soft, nontender, nondistended. Positive bowel sounds. Extremities: No clubbing, cyanosis, edema. Neurologic: Nonfocal. SA/MODL Voice ID: [id number] Report ID: [id number]
== END 2019-03-05 12:01 | disposition home or self-care (01) ==
LOC: ER 15:14 → ERHOLD 17:55 → 2ND 20:10
PROVIDERS: ADMIT Family Medicine; ATTEND Family Medicine
DX: I20.0 Unstable angina (principal); I11.0 Hypertensive heart disease with heart failure; I50.22 Chronic systolic (congestive) heart failure; I25.2 Old myocardial infarction; E66.9 Obesity, unspecified; Z68.34 Body mass index [BMI] 34.0-34.9, adult; Z79.82 Long term (current) use of aspirin; Z79.899 Other long term (current) drug therapy
CPT/HCPCS: 36415; 71045; 80048; 80061; 80076; 83735; 83880; 84484; 85025; 85610; 93005; 94760; 99285; G0378

== ENCOUNTER 2021-11-21 08:09 | Observation (INO) | payer BC ==
--- OUTSIDE RECORDS SUMMARY | 2021-11-21 08:13 | XMS REPORT | Continuity of Care Document ---
:1960 Author Organization [facility] t Address [address] [place] [address] Care Team Providers Name Role Phone Sammy HICKS Primary Care Physician Sammy HICKS Attending Clinician Doctor Unassigned, Name Attending Clinician Unavailable Payers Payer Name Policy Type Policy Number Effective Date Expiration Date S ource Problems Condition Condition Condition Status Onset Resolution Last Treating Co mments Source Name Details Category Date Date Treatment Clinician Date ACC/AHA ACC/AHA Disease Active Univers stage B stage B 03-22 ity of congestive [place]ive [place] heart heart 00 Medical failure failure Branch Obesity Obesity Disease Active Univers 03-22 ity of 00:00: [place] 00 Medical Branch EWING EWING Disease Active Univers (dyspnea (dyspnea 03-22 ity of on on 00:00: [place] exertion) exertion) 00 [facility] Branch Atypical Atypical Disease Active Unive rs chest pain chest pain 03-22 it y of 00:00: [place] 00 Medical Branch Chronic Chronic Disease Active Univers combined combined 03-22 ity of systolic systolic 00:00: [place] and and 00 Medical diastolic diastolic Bran ch CHF, NYHA CHF, NYHA class 3 class 3 Dyslipidem Dyslipidem Disease Active U alannaers ia ia 03-22 ity of 00:00: [place] 00 Medical Branch Unstable Unstable Disease Active Chellee rs angina angina 02-24 ity of 00:00: [place] 00 Medical Branch Chest pain Chest pain Disease Active U nivers 6-06 ity of 00:00: [place] 00 Medical Branch Essential Essential Disease Active 2014-09 Uni vers hypertensi hypertensi 2- it y of on on 00:00: [address] Branch Insomnia Insomnia Disease Active 2014-09 Unive rs 2- ity of 00:00: [address] Branch Abnormal Abnormal Disease Active 2014-09 Unive rs liver liver 11-12 ity of enzymes enzymes 00:00: [address] Branch Dermatophy Dermatophy Disease Active 2014-09 U nivers toses toses 11-12 ity of 00:00: [place] [id number] Medical Branch Allergies, Adverse Reactions, Alerts This patient has no known allergies or adverse reactions. Social History Social Habit Start Date Stop Date Quantity Comments Source History SDOH University o f Alcohol Frequency [place] M edical Branch History SDOH University o f Alcohol Std [place] Medical Drinks Branch History SDOH University o f Alcohol Binge [place] Medic al Branch Exposure to Not sure [facility]-CoV-2 [place] Medical (event) Branch Alcohol intake 2021-03-20 2021-03-20 Current drinker Unive rsity of 00:00:00 00:00:00 of alcohol [place] Medical (finding) Branch Tobacco use and 2015-09-11 2015-09-11 Never used Universit y of exposure 00:00:00 00:00:00 [facility] Alcohol Comment 2015-09-11 2015-09-11 social Universit y of 00:00:00 00:00:00 [facility] Sex Ass[birth year] At [birth year] Universit y of 00:00:00 00:00:00 [facility] Smoking Status Start Date Stop Date Source Never smoker [facility] Branch Medications Ordered Filled Start Stop Current Ordering Indication Dosage Frequency Signature Comments Components Source Medication Medication Date Date Medication? Clinician (SIG) Name Name nitroglycer 2021- No .3mg Place 0.3 Univers in 0.3 mg 2-03 02-03 mg under ity o f sublingual 12:36: 00:00 the tongue [place] tablet 25 :00 every 5 Medical (five) Branch minutes as needed for Chest pain. amLODIPine Yes 10mg Take 10 mg U nivers 10 mg 2-03 by mouth ity of tablet 12:29: daily. [address] rosuvastati Yes 20mg Take 20 mg Univers n 20 mg 2-03 by mouth ity of tablet 12:29: at [place] 24 bedtime. Medical Branch KCL 20 mEq 0 Yes 20meq Take 20 Uni vers tablet 2-03 mEq by ity of 12:29: mouth [place] 24 daily. Medical Branch rosuvastati 0 Yes 20mg Take 20 mg Univers n 20 mg 2-03 by mouth ity of tablet 12:29: at [place] 24 bedtime. Medical Branch KCL 20 mEq 0 Yes 20meq Take 20 Uni vers tablet 2-03 mEq by ity of 12:29: mouth [place] 24 daily. Medical Branch rosuvastati Yes 20mg Take 20 mg Univers n 20 mg 2-03 by mouth ity of tablet 12:29: at [place] 24 bedtime. Medical Branch KCL 20 mEq Yes 20meq Take 20 Uni vers tablet 2-03 mEq by ity of 12:29: mouth [place] 24 daily. Medical Branch zolpidem 10 Yes [id number] 10mg Take 1 Univers mg tablet 2-03 tablet by ity o f 00:00: mouth at [place] 00 bedtime as Medical needed for Branch Insomnia. nitroglycer Yes [id number] .3mg Place 1 Univers in 0.3 mg 2-03 tablet ity of sublingual 00:00: under the [place] tablet 00 tongue Medical every 5 Branch (five) minutes as needed for Chest pain. zolpidem 10 2020-09- No [id number] 10mg Take 1 Univers mg tablet 2-20 02-03 tablet by ity of 00:00: 00:00 mouth at [place] 00 :00 bedtime as Medical needed for Branch Insomnia. metoprolol 0 Yes 100mg Take 100 Un nghia tartrate 6-30 mg by ity of 100 mg 13:12: mouth 2 [place] tablet 16 (two) Medical times Branch daily. metoprolol 2020-0 Yes 100mg Take 100 Un nghia tartrate 6-30 mg by ity of 100 mg 13:12: mouth 2 [place] tablet 16 (two) Medical times Branch daily. metoprolol 2020-0 Yes 100mg Take 100 Un nghia tartrate 6-30 mg by ity of 100 mg 13:12: mouth 2 [place] tablet 16 (two) Medical times Branch daily. LISINOPRIL 2020-0 Yes [id number] TAKE 1 U nivers 20 mg 7-16 TABLET BY ity of tablet 00:00: MOUTH [place] 00 EVERY DAY Medical Branch LISINOPRIL 2020-0 Yes [id number] TAKE 1 U nivers 20 mg 7-16 TABLET BY ity of tablet 00:00: MOUTH [place] 00 EVERY DAY Medical Branch LISINOPRIL 2020-0 Yes [id number] TAKE 1 U nivers 20 mg 7-16 TABLET BY ity of tablet 00:00: MOUTH [place] 00 EVERY DAY Medical Branch eszopiclone 2019-0 Yes [id number] TAKE 1 Univers 3 mg tablet 5-01 TABLET BY ity of 00:00: MOUTH AT [place] 00 BEDTIME Medical NEEDED FOR Branch INSOMNIA eszopiclone 2019-0 Yes [id number] TAKE 1 Univers 3 mg tablet 5-01 TABLET BY ity of 00:00: MOUTH AT [place] 00 BEDTIME Medical NEEDED FOR Branch INSOMNIA eszopiclone 2019-0 Yes [id number] TAKE 1 Univers 3 mg tablet 5-01 TABLET BY ity of 00:00: MOUTH AT [place] 00 BEDTIME Medical NEEDED FOR Branch INSOMNIA spironolact Yes [id number] 25mg Take 1 Univers one 6-29 tablet by ity of (SPIRONOLAC 00:00: mouth [place] TONE) 25 mg 00 daily. Medica l tablet Branch aspirin 81 0 Yes [id number] 81mg Take 1 U nivers mg chewable 6-29 tablet by ity of tablet 00:00: mouth [place] 00 daily. Medical Branch spironolact Yes [id number] 25mg Take 1 Univers one 6-29 tablet by ity of (SPIRONOLAC 00:00: mouth [place] TONE) 25 mg 00 daily. Medica l tablet Branch aspirin 81 2015-0 Yes [id number] 81mg Take 1 U nivers mg chewable 6-29 tablet by ity of tablet 00:00: mouth [place] 00 daily. Medical Branch spironolact 2016-0 Yes [id number] 25mg Take 1 Univers one 6-29 tablet by ity of (SPIRONOLAC 00:00: mouth [place] TONE) 25 mg 00 daily. Medica l tablet Branch aspirin 81 2015-0 Yes [id number] 81mg Take 1 U nivers mg chewable 6-29 tablet by ity of tablet 00:00: mouth [place] 00 daily. Medical Branch Vital Signs Vital Name Observation Time Observation Value Comments Source Systolic blood 2021-10-24 18:31:00 149 mm[Hg[facility] Diastolic blood 2021-10-24 18:31:00 79 mm[Hg] [facility] pressure [facility] Branch Heart rate 2021-10-24 18:25:00 80 /min [facility] Body height 2021-10-24 18:25:00 160 cm [facility] Body weight 2021-10-24 18:25:00 88.587 kg [facility] BMI 2021-10-24 18:25:00 34.60 kg/m2 [facility] Oxygen saturation 2021-10-24 18:25:00 98 /min [facility] in Arterial blood Medical Br anch by Pulse oximetry Procedures Procedure Date / Time Performed Performing Clinician Sour e REFERRAL- 2021-10-22 06:01:00 Doctor Unayon, Brina [facility] REQUEST/RESPONSE Name [facility] Branch Encounters Start End Encounter Admission Attending Care Care Encounter Source Date/Time Date/Time Type Type Clinicians Facility Department ID 2021-10-24 2021-10-24 [id number] Univers 12:45:00 13:00:00 Visit [facility] [id number] it y of [place] [id number] Gregory as ELIAS?BLEA [id number] [address] MEDICAL OFFICE BUILDING 2021-10-23 2021-10-23 [facility] [id number] Univers 00:00:00 00:00:00 [facility] [id number] it y of [place] [id number] Gregory as ELIAS?BLEA [id number] [address] MEDICAL OFFICE [facility] 2021-10-22 2021-10-22 Orders Doctor FRANKLIN [id number] Univers 00:00:00 00:00:00 Only UnassignedDEMETRIA [id number] ity of [place] [facility] [id number] Gregory as [id number] [facility] 009 Branch Results This patient has no known results.
[2021-11-21] MEDS ORDERED: ADENOSINE 6 MG/ 2ML VIAL IV ONE ×2 (08:34→08:48)
[2021-11-21] MEDS ORDERED: METOPROLOL TARTRATE 5 MG/5 ML INJ IV ONE ×3 (08:35→09:46)
[2021-11-21] MEDS ORDERED: NA CHLORIDE 0.9% 500 ML ONE (08:36)
[2021-11-21 08:52] LABS: Absolute Lymphocytes (CBC) 2.1 K/uL (0.7-4.9); Hematocrit 41.2 % (36.0-45.0); Lymphocytes % 22.3 % (15.3-44.8); MPV 10.9 fL (7.6-11.3); RBC Red Blood Cell Count 4.74 M/uL (3.86-4.86)
[2021-11-21 09:01] LABS: Protime INR 0.88
[2021-11-21 09:10] LABS: ALT/SGPT 47 U/L (12-78); AST/SGOT 28 U/L (15-37); Albumin 3.6 g/dL (3.4-5.0); Alkaline Phosphatase 136 U/L (45-117); BUN Blood Urea Nitrogen 20 mg/dL (7-18); Bicarbonate 23 mmol/L (21-32); Bilirubin Direct < 0.1 mg/dL (0-0.2); Bilirubin Total 0.4 mg/dL (0.2-1.0); Glucose Level 202 mg/dL (74-106); Magnesium 1.9 mg/dL (1.8-2.4); NT PRO-BNP 511 pg/mL (<125); Potassium 3.3 mmol/L (3.5-5.1); Protein, Total 7.8 g/dL (6.4-8.2); Sodium Level 140 mmol/L (136-145)
--- NOTE | 2021-11-21 09:33 | RAD REPORT ---
EXAM DESCRIPTION: RAD - Chest Single View - 11/21/2021 9:25 am CLINICAL HISTORY: CHEST PAIN Chest pain. COMPARISON: Chest Single View dated 03/04/2019; Chest Single View dated 07/01/2018; Chest Single View dated 01/09/2017; Chest Single View dated 04/08/2016 FINDINGS: Portable technique limits examination quality. Interstitial markings are mildly prominent which may represent interstitial pulmonary edema. The hear t is moderately enlarged. No displaced fractures.
[2021-11-21] MEDS ORDERED: METOPROLOL TAR 50 MG TAB ONE (09:46)
[2021-11-21 10:00] LABS: Urine Blood Trace-lysed (Negative); Urine Glucose Negative (Negative); Urine Protein Trace (Negative)
--- NOTE | 2021-11-21 11:20 | ER ---
Nurse's Notes [facility] Name: Michelle Ibarra Age: 61 yrs Sex: Female : 1960 Arrival Date: 11/21/2021 Time: 08:12 Bed 8 Private MD: Roverto Christianson S Diagnosis: Chest pain, unspecified;Supraventricular tachycardia Presentation: 11/21 08:21 Chief complaint: Patient states: CP, SOB, palpitations started just after 7am today. HR ll1 at home, 160-180's. Took 3 baby aspirin. History of SVT a couple years ago.. Coronavirus screen: Vaccine status: Patient reports being unvaccinated. Client denies travel out of the [place] in the last 14 days. At this time, the client does not indicate any symptoms associated with coronavirus-19. Ebola Screen: Patient denies travel to an Ebola-affected area in the 21 days before illness onset. Initial Sepsis Screen: Does the patient meet any 2 criteria? No. Patient's initial sepsis screen is negative. Does the patient have a suspected source of infection? No. Patient's initial sepsis screen is negative. Risk Assessment: Do you want to hurt yourself or someone else? Patient reports no desire to harm self or others. Onset of symptoms was November 21, 2021. 08:21 Method Of Arrival: Wheelchair ll1 08:21 Acuity: ARNULFO 2 ll1 Triage Assessment: 08:22 General: Appears distressed, Behavior is cooperative, appropriate for age, anxious. ll1 Pain: Complains of pain in mid chest Quality of pain is described as pressure. Cardiovascular: Reports chest pain, fatigue, shortness of breath. Respiratory: Reports shortness of breath. Historical: - Allergies: 08:20 No Known Drug Allergies; ll1 - Home Meds: 11:59 lisinopril 20 mg oral tab 1 tab once daily [Active]; metoprolol tartrate 100 mg Oral ph tab 1 tab 2 times per day [Active]; zolpidem 10 mg Oral tab 1 tab once daily [Active]; amlodipine 10 mg tab 1 tab once daily [Active]; - PMHx: 08:20 CHF; Hyperlipidemia; Hypertension; Myocardial infarction; SVT; ll1 - Immunization history:: Client reports having NOT received the Covid vaccine. - Social history:: Smoking status: Patient denies any tobacco usage or history of. Screenin:42 Abuse screen: Denies threats or abuse. Nutritional screening: No deficits noted. tw2 Tuberculosis screening: No symptoms or risk factors identified. Fall Risk None identified. Assessment: 08:30 General: Appears in no apparent distress. comfortable, Behavior is calm, cooperative, ph appropriate for age, Denies fever, feeling ill. Pain: Denies pain. Neuro: Level of Consciousness is awake, alert, obeys commands, Oriented to person, place, time, situation, Reports dizziness. Cardiovascular: Reports lightheadedness, palpitations, shortness of breath, Capillary refill < 3 seconds in bilateral fingers Patient's skin is warm and dry. Rhythm is SVT. Respiratory: Airway is patent Respiratory effort is even, labored, Respiratory pattern is regular, symmetrical. GI: No signs and/or symptoms were reported involving the gastrointestinal system. Musculoskeletal: Circulation, motion, and sensation intact. Range of motion: intact in all extremities. 09:09 Reassessment: Patient appears in no apparent distress at this time. ph 10:55 Reassessment: Patient appears in no apparent distress at this time. Patient and/or ph family updated on plan of care and expected duration. Pain level reassessed. Patient is alert, oriented x 3, equal unlabored respirations, skin warm/dry/pink. ERP at bedside. 11:40 Reassessment: Patient appears in no apparent distress at this time. Patient and/or ph family updated on plan of care and expected duration. Pain level reassessed. Patient is alert, oriented x 3, equal unlabored respirations, skin warm/dry/pink. 11:53 Reassessment: Patient appears in no apparent distress at this time. Patient and/or ph family updated on plan of care and expected duration. Pain level reassessed. Patient is alert, oriented x 3, equal unlabored respirations, skin warm/dry/pink. 13:05 Reassessment: Patient appears in no apparent distress at this time. Patient and/or ph family updated on plan of care and expected duration. Pain level reassessed. Patient is alert, oriented x 3, equal unlabored respirations, skin warm/dry/pink. 14:34 Reassessment: Patient appears in no apparent distress at this time. Patient and/or tw2 family updated on plan of care and expected duration. Pain level reassessed. Patient is alert, oriented x 3, equal unlabored respirations, skin warm/dry/pink. 16:00 Reassessment: Patient appears in no apparent distress at this time. Patient and/or ph family updated on plan of care and expected duration. Pain level reassessed. Patient is alert, oriented x 3, equal unlabored respirations, skin warm/dry/pink. 17:21 Reassessment: Attempted to call report to second floor, was told that receiving nurse ph was "discharging a patient and giving blood to another patient and will call right back.". 18:06 Reassessment: Patient appears in no apparent distress at this time. Patient and/or ph family updated on plan of care and expected duration. Pain level reassessed. Patient is alert, oriented x 3, equal unlabored respirations, skin warm/dry/pink. Attempted to call report to second, spoke to receiving RN who stated that she was hanging stat blood on a new pt w/ a critical H\\T\\H. 20:05 General: Appears in no apparent distress. comfortable, Behavior is calm, cooperative, tw5 appropriate for age. General: Reports "The only thing that is hurting right now is my lower back, but I just think it is this bed. Otherwise I am doing pretty good.". Pain: Complains of pain in low back area Pain currently is 4 out of 10 on a pain scale. 20:07 General: Reports "My pulse has only gone up to a 110 a little while ago, but now it has tw5 been pretty normal". Vital Signs: 08:21 Pulse 183; Resp 18; Pulse Ox 96% on R/A; Weight 85.28 kg; Height 5 ft. 3 in. (160.02 ll1 cm); Pain 810; 08:22 BP 154 / 74; Pulse 185; Resp 16; tw2 08:22 BP 152 / 90; Pulse 129; Resp 12; Pulse Ox 97% on 2 lpm NC; tw2 09:06 BP 134 / 71; Pulse 105; Resp 20; Pulse Ox 96% on 2 lpm NC; ph 09:30 BP 136 / 72; Pulse 115; Resp 18; Pulse Ox 98% on 2 lpm NC; ph 10:09 BP 126 / 59; Pulse 104; Resp 16; Pulse Ox 99% on 2 lpm NC; ph 10:20 Temp 97.8(TE); ph 10:55 BP 140 / 102; Pulse 97; Resp 18; Pulse Ox 100% on 2 lpm NC; ph 11:40 BP 148 / 66; Pulse 81; Resp 18; Pulse Ox 100% on 2 lpm NC; ph 13:06 BP 111 / 53; Pulse 66; Resp 18; Pulse Ox 99% on 2 lpm NC; ph 14:33 BP 126 / 65; Pulse 69; Resp 21; Pulse Ox 99% on R/A; tw2 16:00 BP 141 / 70; Pulse 71; Resp 18; Pulse Ox 99% on R/A; ph 17:23 BP 132 / 72; Pulse 74; Resp 18; Temp 98.0; Pulse Ox 99% on R/A; ph 18:30 BP 127 / 79; Pulse 71; Resp 17; Pulse Ox 97% on R/A; tw2 20:07 BP 145 / 71; Pulse 82; Resp 18; Pulse Ox 95% on R/A; Pain 4/10; tw5 08:21 Body Mass Index 33.30 (85.28 kg, 160.02 cm) ll1 08:22 provider aware of HR tw2 08:22 provider at bedside at this time. tw2 Vitals: 09:30 Cardiac Rhythm Assessment Sinus tach. ph 11:40 Cardiac Rhythm Assessment Sinus rhythm. ph 13:06 Cardiac Rhythm Assessment Sinus rhythm. ph ED Course: 08:12 Patient arrived in ED. mr 08:12 Roverto Christianson MD is Private Physician. mr 08:15 Placed in gown. Bed in low position. Side rails up X 1. campus monitor on. Pulse ox tw2 on. NIBP on. 08:16 Yaneli Waterman, KAROLYN is Primary Nurse. ph 08:20 Bipin Head PA is PHCP. jmm 08:20 Ga García MD is Attending Physician. jmm 08:20 Arm band placed on Patient placed in an exam room, on a stretcher. ll1 08:22 Triage completed. ll1 08:30 Initial lab(s) drawn, by az, sent to lab. Inserted saline lock: 22 gauge in right ph antecubital area, using aseptic technique. Blood collected. Oxygen administration via nasal cannula \\T\\ 2L/min. 09:23 X-ray completed. Portable x-ray completed in exam room. Patient tolerated procedure mh1 well. 09:26 XRAY Chest (1 view) In Process Unspecified. EDMS 10:57 No provider procedures requiring assistance completed. ph 11:19 Prince Fleming MD is Hospitalizing Provider. [facility] 19:10 Primary Nurse role handed off by Yaneli Waterman RN cs9 19:35 Brianna Spaulding is Primary Nurse. tw5 20:07 Awaiting: nurse to take report on [employer]. tw5 20:07 Patient has correct armband on for positive identification. Placed in gown. Bed in low tw5 position. Call light in reach. campus monitor on. Pulse ox on. NIBP on. Door closed. Noise minimized. Moved to private room. Warm blanket given. Verbal reassurance given. 20:10 Diet: Patient given snack. tw5 Administered Medications: 08:29 Drug: Metoprolol 5 mg Route: IVP; Site: right antecubital; ph 08:45 Follow up: Response: No adverse reaction ph 08:29 Drug: NS 0.9% 500 ml Route: IV; Rate: bolus; Site: right antecubital; tw2 09:30 Follow up: Response: No adverse reaction; IV Status: Completed infusion; IV Intake: ph 500ml 08:31 Drug: Adenocard (adenosine) 6 mg Route: IVP; Site: right antecubital; ph 08:40 Follow up: Response: No adverse reaction ph 08:35 Drug: Metoprolol 5 mg Route: IVP; Site: right antecubital; ph 08:45 Follow up: Response: No adverse reaction ph 08:42 Drug: Adenocard (adenosine) 12 mg Route: IVP; Site: right antecubital; ph 09:00 Follow up: Response: No adverse reaction ph 08:48 Drug: Metoprolol 5 mg Route: IVP; Site: right antecubital; ph 10:00 Follow up: Response: No adverse reaction ph 09:10 Not Given (Duplicate Order): NS 0.9% 1000 ml IV at 1 bolus Per protocol; 1000 mL bolus tw2 09:40 Drug: Metoprolol 5 mg Route: IVP; Site: right antecubital; ph 10:00 Follow up: Response: No adverse reaction ph 09:45 Drug: Metoprolol TARTRATE 50 mg Route: PO; ph 10:00 Follow up: Response: No adverse reaction ph Intake: 09:30 IV: 500ml; Total: 500ml. ph Outcome: 11:19 Decision to Hospitalize by Provider. jenifer 19:36 Admitted to tw5 19:36 Admitted to Med/surg Report called to Attempted to call report. Spoke to Do mcdaniel tw5 stated she would have the nurse call back. 20:13 Admitted to Med/surg Report called to Report given to [facility]ie [facility] 21:06 Patient left the ED. bb Signatures: Dispatcher [employer] EDMS Bipin Head PA PA jmm Alex Steven Woodha 1 Ann Cole RN RN bb Yaneli Waterman RN RN Sudha Bailey RN RN 2 Mitch Navarro RN RN 1 Jasson, Brianna 5 Nori Peres 9 Corrections: (The following items were deleted from the chart) 08:59 08:09 Metoprolol 5 mg IVP in right antecubital ph ph 17:24 15:00 BP 141 / 70; Pulse 71bpm; Resp 18bpm; Pulse Ox 99% RA; ph ph
--- NOTE | 2021-11-21 11:20 | EDPHYS ---
Physician Documentation [facility] Name: Michelle Ibarra Age: 61 yrs Sex: Female : 1960 Arrival Date: 11/21/2021 Time: 08:12 Bed 8 Private MD: Roverto Christianson S ED Physician Ga García HPI: 11/21 08:21 This 61 yrs old Female presents to ER via Wheelchair with complaints of Chest Pain. [facility] 08:21 The patient or guardian reports chest pain that is located primarily in the substernal [facility] area. Onset: acutely, this morning. The pain does not radiate. Associated signs and symptoms: Pertinent positives: shortness of breath. The chest pain is described as aching. Duration: The patient or guardian reports a single episode, that is still ongoing. Modifying factors: The symptoms are alleviated by nothing. the symptoms are aggravated by nothing. The patient has experienced a previous episode. Historical: - Allergies: 08:20 No Known Drug Allergies; ll1 - Home Meds: 11:59 lisinopril 20 mg oral tab 1 tab once daily [Active]; metoprolol tartrate 100 mg Oral ph tab 1 tab 2 times per day [Active]; zolpidem 10 mg Oral tab 1 tab once daily [Active]; amlodipine 10 mg tab 1 tab once daily [Active]; - PMHx: 08:20 CHF; Hyperlipidemia; Hypertension; Myocardial infarction; SVT; ll1 - Immunization history:: Client reports having NOT received the Covid vaccine. - Social history:: Smoking status: Patient denies any tobacco usage or history of. ROS: 08:21 Constitutional: Positive for body aches. jmm 08:21 Cardiovascular: Positive for chest pain, palpitations. 08:21 All other systems are negative. Exam: 08:21 Constitutional: This is a well developed, well nourished patient who is awake, alert, jmm and in no acute distress. Head/Face: atraumatic. Eyes: EOMI, no conjunctival erythema appreciated ENT: Moist Mucus Membranes Neck: Trachea midline, Supple Chest/axilla: Normal chest wall appearance and motion. Cardiovascular: Regular rate and rhythm. No edema appreciated Respiratory: Normal respirations, no respiratory distress appreciated Abdomen/GI: Non distended, soft Back: Normal ROM Skin: General appearance color normal MS/ Extremity: Moves all extremities, no obvious deformities appreciated, no edema noted to the lower extremities Neuro: Awake and alert Psych: Behavior is normal, Mood is normal, Patient is cooperative and pleasant Vital Signs: 08:21 Pulse 183; Resp 18; Pulse Ox 96% on R/A; Weight 85.28 kg; Height 5 ft. 3 in. (160.02 ll1 cm); Pain 8/10; 08:22 BP 154 / 74; Pulse 185; Resp 16; tw2 08:22 BP 152 / 90; Pulse 129; Resp 12; Pulse Ox 97% on 2 lpm NC; tw2 09:06 BP 134 / 71; Pulse 105; Resp 20; Pulse Ox 96% on 2 lpm NC; ph 09:30 BP 136 / 72; Pulse 115; Resp 18; Pulse Ox 98% on 2 lpm NC; ph 10:09 BP 126 / 59; Pulse 104; Resp 16; Pulse Ox 99% on 2 lpm NC; ph 10:20 Temp 97.8(TE); ph 10:55 BP 140 / 102; Pulse 97; Resp 18; Pulse Ox 100% on 2 lpm NC; ph 11:40 BP 148 / 66; Pulse 81; Resp 18; Pulse Ox 100% on 2 lpm NC; ph 13:06 BP 111 / 53; Pulse 66; Resp 18; Pulse Ox 99% on 2 lpm NC; ph 14:33 BP 126 / 65; Pulse 69; Resp 21; Pulse Ox 99% on R/A; tw2 16:00 BP 141 / 70; Pulse 71; Resp 18; Pulse Ox 99% on R/A; ph 17:23 BP 132 / 72; Pulse 74; Resp 18; Temp 98.0; Pulse Ox 99% on R/A; ph 18:30 BP 127 / 79; Pulse 71; Resp 17; Pulse Ox 97% on R/A; tw2 20:07 BP 145 / 71; Pulse 82; Resp 18; Pulse Ox 95% on R/A; Pain 4/10; tw5 08:21 Body Mass Index 33.30 (85.28 kg, 160.02 cm) ll1 08:22 provider aware of HR tw2 08:22 provider at bedside at this time. tw2 MDM: 08:26 Patient medically screened. m 11:16 Data reviewed: vital signs, nurses notes. Counseling: I had a detailed discussion with jenifer the patient and/or guardian regarding: the historical points, exam findings, and any diagnostic results supporting the discharge/admit diagnosis, lab results, radiology results, the need for further work-up and treatment in the hospital. ED course: I discussed the patient with Dr. Ramirez whom accepted the patient for admission. . 11/21 08:21 Order name: Basic Metabolic Panel; Complete Time: 09:13 [facility] 11/21 08:21 Order name: CBC with Diff; Complete Time: 08:56 [facility] 11/21 08:21 Order name: LFT's; Complete Time: 09:13 [facility] 11/21 08:21 Order name: Magnesium; Complete Time: 09:13 [facility] 11/21 08:21 Order name: NT PRO-BNP; Complete Time: 09:13 [facility] 11/21 08:21 Order name: PT-INR; Complete Time: 09:08 [facility] 11/21 08:21 Order name: Troponin HS; Complete Time: 09:13 [facility] 11/21 08:21 Order name: XRAY Chest (1 view); Complete Time: 09:56 [facility] 11/21 10:00 Order name: Urine Dipstick-Ancillary; Complete Time: 10:06 [facility] 11/21 11:25 Order name: COVID-19 SARS RT PCR (Document "Date of Onset" if Symptomatic); Complete bd Time: 13:08 11/21 08:21 Order name: EKG; Complete Time: 08:21 [facility] 11/21 08:21 Order name: Cardiac monitoring; Complete Time: 08:42 [facility] 11/21 08:21 Order name: EKG - Nurse/Tech; Complete Time: 08:42 [facility] 11/21 08:21 Order name: IV Saline Lock; Complete Time: 08:42 [facility] 11/21 08:21 Order name: Labs collected and sent; Complete Time: 08:42 [facility] 11/21 08:21 Order name: O2 Per Protocol; Complete Time: 08:42 [facility] 11/21 08:21 Order name: O2 Sat Monitoring; Complete Time: 08:42 [facility] Administered Medications: 08:29 Drug: Metoprolol 5 mg Route: IVP; Site: right antecubital; ph 08:45 Follow up: Response: No adverse reaction ph 08:29 Drug: NS 0.9% 500 ml Route: IV; Rate: bolus; Site: right antecubital; tw2 09:30 Follow up: Response: No adverse reaction; IV Status: Completed infusion; IV Intake: ph 500ml 08:31 Drug: Adenocard (adenosine) 6 mg Route: IVP; Site: right antecubital; ph 08:40 Follow up: Response: No adverse reaction ph 08:35 Drug: Metoprolol 5 mg Route: IVP; Site: right antecubital; ph 08:45 Follow up: Response: No adverse reaction ph 08:42 Drug: Adenocard (adenosine) 12 mg Route: IVP; Site: right antecubital; ph 09:00 Follow up: Response: No adverse reaction ph 08:48 Drug: Metoprolol 5 mg Route: IVP; Site: right antecubital; ph 10:00 Follow up: Response: No adverse reaction ph 09:10 Not Given (Duplicate Order): NS 0.9% 1000 ml IV at 1 bolus Per protocol; 1000 mL bolus tw2 09:40 Drug: Metoprolol 5 mg Route: IVP; Site: right antecubital; ph 10:00 Follow up: Response: No adverse reaction ph 09:45 Drug: Metoprolol TARTRATE 50 mg Route: PO; ph 10:00 Follow up: Response: No adverse reaction ph Disposition Summary: 11/21/21 11:19 Hospitalization Ordered Hospitalization Status: Observation [facility] Provider: Prince jenifer Fleming Location: Telemetry/MedSurg (observation) jmm Condition: Stable jmm Problem: an acute exacerbation jm Symptoms: have improved [facility] Bed/Room Type: Standard [facility] Room Assignment: 219(11/21/21 18:41) ja1 Diagnosis - Chest pain, unspecified jmm - Supraventricular tachycardia [facility] Forms: - Medication Reconciliation Form jmm - SBAR form [facility] Signatures: Dispatcher [employer] EDBipin Perez PA PA m Domi Driscoll RN RN ss Hall, Patricia RN Sudha Bullock ph RN RN tw2 Seferino Rico RN RN ja1 Mitch Navarro RN RN ll1 Corrections: (The following items were deleted from the chart) 16:17 11:19 [facility] 18:41 16:17 228 ss ja1
--- NOTE | 2021-11-21 12:48 | P.HP ---
Certification for Inpatient Patient admitted to: Observation With expected LOS: <2 Midnights Practitioner: I am a practitioner with admitting privileges, knowledge of patient current condition, hospital course, and medical plan of care. Services: Services provided to patient in accordance with Admission requirements found in Title 42 Section 412.3 of the Code of Federal Regulations Patient History Date of Service: 11/21/21 Reason for admission: Chest pressure History of Present Illness: 61-year-old female with a past medical history of coronary artery disease status post [place], congestive heart failure, hypertension, obesity and SVT. She presented today complaining of a sudden onset of chest pressure which started as she was dropping her granddaughter at a school bus. Her symptoms radiated to both arms which she described as pain. She took low-dose aspirin. She checked her blood pressure. Her SBP was in the high 160s and a heart rate in the 180s. She presented to the ER for further evaluation. She was found to have SVT in the ER and required multiple doses of adenosine adenosine and IV metoprolol. She is now in sinus rhythm and asymptomatic. 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 She has never had any ablation in the past, stent placement or CABG. Allergies No Known Drug Allergies Allergy (Verified 04/09/16 05:36) Unknown No Known Allerg Allergy (Uncoded 01/09/17 14:46) Unknown No Known Allergie Allergy (Uncoded 04/09/16 04:27) Unknown Home Medications: Furosemide [Lasix*] 40 mg PO DAILY 01/20/14 Aspirin 81 mg PO DAILY 06/07/14 Metoprolol Tartrate [Lopressor] 100 mg PO BID 01/09/17 Nebivolol HCl [Bystolic*] 20 mg PO DAILY 01/09/17 lisinopriL [Prinivil*] 10 mg PO DAILY 03/04/19 Nitroglycerin [Nitrostat] 0.3 mg SL SEECOM PRN #30 tab.subl 03/05/19 Spironolactone [Aldactone*] 25 mg PO DAILY #30 tab 03/05/19 - Past Medical/Surgical History Diabetic: No -: Acute coronary syndrome -: Hypertension -: CHF -: hyperlipidemia -: Cholecystectomy -: partial hysterectomy -: left rotator cuff surgery -: right knee ACL repair - Family History Mother -: Heart disease Notes: of NE - Social History Alcohol use: Yes CD- Drugs: No Caffeine use: Yes Physical Examination - Physical Exam General: Alert, In no apparent distress, Cooperative HEENT: Atraumatic, Normocephalic, EOMI Respiratory: Clear to auscultation bilaterally, Normal air movement Cardiovascular: Normal pulses, Regular rate/rhythm, Normal S1 S2 Musculoskeletal: No clubbing, No swelling, No contractures, No erythema Neurological: Normal speech, Normal affect - Studies Laboratory Data (last 24 hrs) 11/21/21 08:30: PT 10.1, INR 0.88 11/21/21 08:30: WBC 9.60, Hgb 13.6, Hct 41.2, Plt Count 216 11/21/21 08:30: Sodium 140, Potassium 3.3 L, BUN 20 H, Creatinine 0.98, Glucose 202 H, Magnesium 1.9, Total Bilirubin 0.4, AST 28, ALT 47, Alkaline Phosphatase 136 H Assessment and Plan - Problems (Diagnosis) (1) Chest pain Onset Date: 04/09/16 Current Visit: No Status: Acute (2) Congestive heart failure with left ventricular systolic dysfunction Current Visit: No Status: Acute (3) SVT (supraventricular tachycardia) Current Visit: No Status: Acute - Advance Directives Does patient have a Living Will: No Does patient have a Durable POA for Healthcare: No Physician Review Additional Text: Assessment Patient is a 61-year-old female with a past medical history of coronary disease, congestive heart failure and hypertension. She is currently being admitted after she presented with chest pressure and was found to have SVT. Her heart rate has been restored after a few injection of adenosine and metoprolol. Of note, patient has a history of chronic systolic CHF. Last EF was 18% back in 2019. It seems like he has been offered a defibrillator at the time but she refused. Chest pressure SVT Coronary artery disease Congestive heart failure Plan: Admit under observation telemetry Resume home dose of beta-blockers Follow-up 2D echo Trend troponins Replace potassium I will get cardiology consult as well Lovenox for DVT prophylaxis
[2021-11-21] MEDS ORDERED: ENOXAPARIN 40 MG/0.4 ML SQ SCH (17:00)
[2021-11-21] MEDS ORDERED: POTASSIUM CL SA 10 MEQ TAB PO ONE (21:05)
[2021-11-21] MEDS ORDERED: NITROGLYCERIN 0.3 MG SL PRN (21:05)
[2021-11-21 21:33] VITALS: BMI 34.0
[2021-11-22] MEDS ORDERED: ZOLPIDEM TARTRATE 10 MG TABLET PO PRN (01:49)
[2021-11-22] MEDS ORDERED: NEBIVOLOL HCL 5 MG TAB PO SCH (09:00)
[2021-11-22] MEDS ORDERED: FUROSEMIDE 40 MG TABLET PO SCH (09:00)
[2021-11-22] MEDS ORDERED: lisinopriL 10 MG TAB PO SCH (09:00)
[2021-11-22] MEDS ORDERED: ASPIRIN 81 MG CHEWABLE TABLET PO SCH (09:00)
[2021-11-22] MEDS ORDERED: SPIRONOLACTONE 25 MG TABLET PO SCH (09:00)
--- NOTE | 2021-11-22 10:12 | P.DS ---
Admission Date: 11/21/21 Discharge Date: 11/22/21 Disposition: ROUTINE DISCHARGE Reason for Admission: Chest pressure - Problems (1) Chest pain Onset Date: 04/09/16 Current Visit: No Status: Acute (2) Congestive heart failure with left ventricular systolic dysfunction Current Visit: No Status: Acute (3) SVT (supraventricular tachycardia) Current Visit: No Status: Acute Brief History of Present Illness: 61-year-old female with a past medical history of coronary artery disease status post [place], congestive heart failure, hypertension, obesity and SVT. She presented today complaining of a sudden onset of chest pressure which started as she was dropping her granddaughter at a school bus. Her symptoms radiated to both arms which she described as pain. She took low-dose aspirin. She checked her blood pressure. Her SBP was in the high 160s and a heart rate in the 180s. She presented to the ER for further evaluation. She was found to have SVT in the ER and required multiple doses of adenosine adenosine and IV metoprolol. She is now in sinus rhythm and asymptomatic. 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 She has never had any ablation in the past, stent placement or CABG. Hospital Course: Patient did well throughout the hospitalization. Her heart rate remained controlled on rate control medications. She can be discharged today to follow- up with her talent advisor. She has a history of chronic systolic CHF with EF of 18% a few years ago. However, she is active and independent in all her ADLs. Vital Signs/Physical Exam: Temp Pulse Resp BP Pulse Ox 97.4 F 78 14 135/76 99 11/22/21 08:00 11/22/21 08:00 11/22/21 08:00 11/22/21 08:00 11/22/21 08:00 General: Alert, In no apparent distress, Cooperative HEENT: Atraumatic, Normocephalic Musculoskeletal: No clubbing, No swelling, No contractures, No erythema Neurological: Normal gait, Normal speech, Normal affect Laboratory Data at Discharge: WBC 9.60 K/uL (4.3-10.9) 11/21/21 08:30 Hgb 13.6 g/dL (12.0-15.0) 11/21/21 08:30 Hct 41.2 % (36.0-45.0) 11/21/21 08:30 Plt Count 216 K/uL (152-406) 11/21/21 08:30 PT 10.1 SECONDS (9.5-12.5) 11/21/21 08:30 INR 0.88 11/21/21 08:30 Sodium 140 mmol/L (136-145) 11/21/21 08:30 Potassium 3.3 mmol/L (3.5-5.1) L 11/21/21 08:30 BUN 20 mg/dL (7-18) H 11/21/21 08:30 Creatinine 0.98 mg/dL (0.55-1.3) 11/21/21 08:30 Glucose 202 mg/dL (74-106) H 11/21/21 08:30 Magnesium 1.9 mg/dL (1.8-2.4) 11/21/21 08:30 Total Bilirubin 0.4 mg/dL (0.2-1.0) 11/21/21 08:30 AST 28 U/L (15-37) 11/21/21 08:30 ALT 47 U/L (12-78) 11/21/21 08:30 Alkaline Phosphatase 136 U/L (45-117) H 11/21/21 08:30 Home Medications: Aspirin 81 mg PO DAILY 06/07/14 Metoprolol Tartrate [Lopressor] 100 mg PO BID 01/09/17 Amlodipine [Norvasc*] 10 mg PO DAILY 11/21/21 Lisinopril [Zestril] 20 mg PO DAILY 11/21/21 Zolpidem Tartrate [Ambien] 10 mg PO BEDTIME PRN 11/21/21 Nebivolol HCl [Bystolic*] 20 mg PO DAILY tab 11/22/21 Spironolactone [Aldactone*] 25 mg PO DAILY tab 11/22/21 Followup: Roverto Christianson MD [Primary Care Provider] -
--- NOTE | 2021-11-22 11:32 | ECHO ---
HEIGHT: 5 ft 3 in WEIGHT: 191 lb 12.835 oz DATE OF STUDY: 11/22/[address]: Prince Kg Fleming MD 2-DIMENSIONAL: YES M.MODE: YES DOPPLER: YES COLOR FLOW: YES TDS: NO PORTABLE: NO DEFINITY: NO BUBBLE STUDY: NO DIAGNOSIS: SUPRA VENTRICULAR TACHYCARDIA CARDIAC HISTORY: CATHERIZATION: NO SURGERY: NO PROSTHETIC VALVE: NO PACEMAKER: NO MEASUREMENTS (cm) DIASTOLIC (NORMALS) SYSTOLIC (NORMALS) IVSd 0.9 (0.6-1.2) LA Diam 4.1 (1.9-4.0) LVEF 30-35% LVIDd 5.3 (3.5-5.7) LVIDs 4.2 (2.0-3.5) %FS 21% LVPWd 1.1 (0.6-1.2) Ao Diam 2.6 (2.0-3.7) 2 DIMENSIONAL ASSESSMENT: RIGHT ATRIUM: NORMAL LEFT ATRIUM: DILATED RIGHT VENTRICLE: NORMAL LEFT VENTRICLE: NORMAL SIZE TRICUSPID VALVE: NORMAL MITRAL VALVE: NORMAL PULMONIC VALVE: NORMAL AORTIC VALVE: NORMAL PERICARDIAL EFFUSION: NONE AORTIC ROOT: NORMAL LEFT VENTRICULAR WALL MOTION: SEVERE GLOBAL HYPOKINESIS. DOPPLER/COLOR FLOW: NORMAL. COMMENTS: SEVERE GLOBAL HYPOKINESIS. EJECTION FRACTION 30-35%. NO WALL MOTION ABNORMALITY. NO THROMBUS. TECHNOLOGIST: COBY NARANJO
--- NOTE | 2021-11-22 11:35 | EKG ---
Test Date: 2021-11-21 Test Time: 08:22:52 Compensation Adjuster: PH MEASUREMENT RESULTS: Intervals: Rate: 184 AL: QRSD: 96 QT: 268 QTc: 469 [place]: P: AL: QRS: -18 T: 118 INTERPRETIVE STATEMENTS: Supraventricular tachycardia Left ventricular hypertrophy with repolarization abnormality Cannot rule out Septal infarct, age undetermined Abnormal ECG Compared to ECG 03/04/2019 15:18:48 Early repolarization now present Sinus rhythm no longer present T-wave abnormality no longer present Myocardial infarct finding still present Electronically Signed On 11-22-21 11:29:32 CERAMICS TECHNICIAN by Asad Hernandez
--- NOTE | 2021-11-22 11:35 | EKG ---
Test Date: 2021-11-21 Test Time: 08:44:37 Boat Outboard Engine Mechanic: PH MEASUREMENT RESULTS: Intervals: Rate: 117 NH: 180 QRSD: 96 QT: 322 QTc: 449 [place]: P: 2 NH: 180 QRS: -13 T: 95 INTERPRETIVE STATEMENTS: Sinus tachycardia Left ventricular hypertrophy with repolarization abnormality Cannot rule out Septal infarct, age undetermined Abnormal ECG Compared to ECG 11/21/2021 08:22:52 Supraventricular tachycardia no longer present Myocardial infarct finding still present Electronically Signed On 11-22-21 11:29:31 NURSING PROFESSOR by Asad Hernandez
[2021-11-22 15:17] VITALS: BP 148/80; TEMP 97.3; O2SAT 97
--- NOTE | 2021-11-23 21:00 | CON ---
Date of Consultation: 11/22/2021 Reason For Consultation: SVT. History Of Present Illness: Ms. Ibarra is a 61-year-old white woman, who has a history of conges tive heart failure dating back to 2018 at which point, Dr. Yoo has recommended a defibrillator, but she has not had it and she has actually done very well since with very rare episodes of CHF or SVT. She has a history of hypertension and dyslipidemia as well. Came in with an episode of SVT that reso lved after beta blockers. Medications: She at home takes aspirin, Norvasc, lisinopril, and metoprolol. Allergies: SHE DOES NOT HAVE ANY ALLERGIES. Review of Systems: Negative. Social History: Negative. Family History: Negative. Physical Examination: I did not examine the patient myself, but her examination according to the charts were normal with no rmal blood pressure, normal sinus rhythm. No fever and normal physical examination. Assessment And Plan: Ms. Ibarra normally sees Dr. Yoo, who recommended that she go and see him in the near future. Echocardiogram is pending for today and was actually read. Her ejection fractio n is probably about 30%. No thrombus. I will continue her present regimen and I recommend that she takes an extra metoprolol on a as needed basis. If her supraventricular tachycardia becomes more of an issue, then she will need an ablation. She can go home whenever it is okay with Whitney Fleming. HEATHER/HOWIE Voice ID: [id number] Report ID: [id number]
== END 2021-11-22 12:42 | disposition home or self-care (01) ==
LOC: ER 08:09 → ERHOLD 12:31 → 2ND 16:57
PROVIDERS: ADMIT Internal Medicine; ATTEND Internal Medicine
DX: I47.1 Supraventricular tachycardia (principal); I11.0 Hypertensive heart disease with heart failure; I50.22 Chronic systolic (congestive) heart failure; I24.9 Acute ischemic heart disease, unspecified; I25.10 Atherosclerotic heart disease of native coronary artery without angina pectoris; I25.2 Old myocardial infarction; E78.5 Hyperlipidemia, unspecified; E66.9 Obesity, unspecified; Z68.34 Body mass index [BMI] 34.0-34.9, adult; Z79.82 Long term (current) use of aspirin; Z79.899 Other long term (current) drug therapy; Z90.49 Acquired absence of other specified parts of digestive tract; Z20.822 Contact with and (suspected) exposure to COVID-19; Z82.49 Family history of ischemic heart disease and other diseases of the circulatory system
CPT/HCPCS: 96361; 93005 ×2; 93306; 85025; 80048; 36415; 83735; 85610; 80076; 81003; 84484 ×2; 83880; 71045; 96375; 96374; 99285; U0003; J0153 ×2; J1650; J7040; G0378 ×3